=== PATIENT | male | born 1995 | race Caucasian/White ===

== ENCOUNTER 2019-02-05 12:56 | Emergency (ER) | payer MEDICAID, SELFPAY ==
[~2019-02-05] VITALS: Ht 175.3 cm; Wt 68.2 kg
[2019-02-05] MEDS ORDERED: PERCOCET 5MG/325MG TAB PO ONE (13:30)
[2019-02-05] MEDS ORDERED: PERC5TAB12 PO (14:32)
[2019-02-05 14:40] VITALS: BP 129/67
--- NOTE | 2019-02-05 14:40 | REP ---
REASON: Pain after trauma. COMPARISON: No priors. FINDINGS: No acute fracture or destructive osseous lesion. The mortise is intact. Electronically Signed by Joao Jarquin DO 02/05/2019 04:51 P
--- NOTE | 2019-02-05 14:46 | REP ---
REASON: Pain after trauma. Fractures involving the basis of the 2nd, 3rd, and 4th metatarsals are seen. There is a modified type B2 Lisfranc distraction. This is according to Irina and qu nu classification. No additional fractures are noted. IMPRESSION: Fractures involving the bases of the 2nd thru 3rd metatarsals inclusive as described above. Electronically Signed by Joao Jarquin DO 02/05/2019 04:51 P
== END 2019-02-05 14:44 | disposition home or self-care (01) ==
LOC: M ED 12:56
DX: S92.324A Nondisplaced fracture of second metatarsal bone, right foot, initial encounter for closed fracture (principal); S92.334A Nondisplaced fracture of third metatarsal bone, right foot, initial encounter for closed fracture; V00.131A Fall from skateboard, initial encounter; Y92.89 Other specified places as the place of occurrence of the external cause; F17.210 Nicotine dependence, cigarettes, uncomplicated